=== PATIENT | female | born 1955 | race American Indian/Alaskan Native ===

== ENCOUNTER 2017-05-19 21:26 | Emergency (ER) | payer MEDICARE ==
[2017-05-20] LABS: Anion Gap 20 mmol/L; BUN/Creatinine Ratio 26.66; Blood Urea Nitrogen 16 mg/dL (7-17); Calcium 9.5 mg/dL (8.4-10.2); Carbon Dioxide 23 mmol/L (22-30); Glucose 89 mg/dL (65-100); Potassium 4.4 mmol/L (3.6-5.0); Sodium 139 mmol/L (137-145)
[2017-05-20 00:06] LABS: Basophils % (Auto) 0.6 % (0.0-1.8); Eosinophils % (Auto) 2.2 % (0.0-4.3); Hematocrit 30.2 % (30.3-42.9); Hemoglobin 9.7 gm/dl (10.1-14.3); Mean Corpuscular HGB Conc 32 % (30-34); Mean Corpuscular Volume 81 fl (79-97); Platelet Count 231 K/mm3 (140-440); Red Blood Count 3.75 M/mm3 (3.65-5.03); Red Cell Distribution Width 15.9 % (13.2-15.2); White Blood Count 8.3 K/mm3 (4.5-11.0)
[2017-05-20 00:07] LABS: Mean Corpuscular Hemoglobin 26 pg (28-32)
[2017-05-20 06:21] VITALS: BP 168/108
--- NOTE | 2017-05-20 06:22 | Emergency Department Report ---
ED Shortness of Breath HPI - General Chief Complaint: Dyspnea/Respdistress Stated Complaint: FALL/RT SIDE PAIN Time Seen by Provider: 05/20/17 05:58 Source: patient Mode of arrival: Ambulatory Limitations: No Limitations - History of Present Illness Initial Comments: 62-year-old female here with fall on Thursday. Complains of pain in the right knee. States she has pain when she ambulates. She noticed a significant swelling of the knee starting a couple days ago. She has notable bruising over the knee. She also complains of some mild shortness of breath. She's had that since Thursday as well. She has a mild cough. She is not coughing anything up. Denies fevers chills nausea vomiting chest pain. MD Complaint: shortness of breath, cough -: Gradual Radiation: other (none) Improves With: nothing Worsens With: nothing Associated Symptoms: denies other symptoms, cough - Related Data Previous Rx's Medication Instructions Recorded Last Taken Type Ibuprofen [Motrin] 600 mg PO Q8H PRN #15 tablet 05/20/17 Unknown Rx Allergies Allergy/AdvReac Type Severity Reaction Status Date / Time No Known Allergies Allergy Unverified 05/19/17 22:27 ED Review of Systems ROS: Stated complaint: FALL/RT SIDE PAIN Other details as noted in HPI Constitutional: denies: chills, fever Eyes: denies: eye pain, eye discharge, vision change ENT: denies: ear pain, throat pain Respiratory: shortness of breath. denies: cough, wheezing Cardiovascular: denies: chest pain, palpitations Endocrine: no symptoms reported Gastrointestinal: denies: abdominal pain, nausea, diarrhea Genitourinary: denies: urgency, dysuria, discharge Musculoskeletal: joint swelling. denies: back pain, arthralgia Skin: denies: rash, lesions Neurological: denies: headache, weakness, paresthesias Psychiatric: denies: anxiety, depression Hematological/Lymphatic: denies: easy bleeding, easy bruising ED Past Medical Hx - Past Medical History Previous Medical History?: Yes Hx Hypertension: Yes - Surgical History Past Surgical History?: Yes Additional Surgical History: fibroid sx 1992, hysterectomy 1992 - Social History Smoking Status: Never Smoker Substance Use Type: None - Medications Home Medications: Home Medications Medication Instructions Recorded Confirmed Last Taken Type Ibuprofen [Motrin] 600 mg PO Q8H PRN #15 tablet 05/20/17 Unknown Rx ED Physical Exam - General Limitations: No Limitations General appearance: alert, in no apparent distress - Head Head exam: Present: atraumatic, normocephalic - Eye Eye exam: Present: normal appearance, PERRL - ENT ENT exam: Present: mucous membranes moist - Neck Neck exam: Present: normal inspection, meningismus. Absent: lymphadenopathy - Respiratory Respiratory exam: Present: normal lung sounds bilaterally. Absent: respiratory distress, wheezes - Cardiovascular Cardiovascular Exam: Present: regular rate, normal rhythm. Absent: systolic murmur, diastolic murmur, rubs, gallop - GI/Abdominal GI/Abdominal exam: Present: soft, normal bowel sounds - Expanded Lower Extremity Exam Right Knee exam: Present: full ROM, tenderness, swelling, effusion. Absent: crepidus , dislocation, erythema Lower Leg exam: Present: swelling. Absent: tenderness, crepidus - Back Exam Back exam: Present: normal inspection - Neurological Exam Neurological exam: Present: alert, oriented X3 - Psychiatric Psychiatric exam: Present: normal affect, normal mood - Skin Skin exam: Present: warm, dry, intact, normal color. Absent: rash ED Course Vital Signs 05/19/17 05/20/17 05/20/17 22:18 02:24 02:30 Temperature 98 F Pulse Rate 95 H 84 Respiratory 18 10 L Rate Blood Pressure 186/110 187/116 Blood Pressure [Left] O2 Sat by Pulse 100 98 96 Oximetry 05/20/17 05/20/17 05/20/17 02:40 02:45 02:50 Temperature 98.4 F Pulse Rate 82 84 89 Respiratory 16 12 13 Rate Blood Pressure 187/116 174/107 Blood Pressure 187/116 [Left] O2 Sat by Pulse 96 97 94 Oximetry 05/20/17 05/20/17 05/20/17 03:00 03:10 03:20 Temperature Pulse Rate 79 81 85 Respiratory 12 15 17 Rate Blood Pressure 168/107 168/107 163/100 Blood Pressure [Left] O2 Sat by Pulse 95 96 95 Oximetry 05/20/17 05/20/17 05/20/17 03:30 03:40 03:50 Temperature Pulse Rate 79 75 74 Respiratory 12 15 13 Rate Blood Pressure 169/101 169/101 161/98 Blood Pressure [Left] O2 Sat by Pulse 95 95 95 Oximetry 05/20/17 04:00 Temperature Pulse Rate 71 Respiratory 15 Rate Blood Pressure 160/98 Blood Pressure [Left] O2 Sat by Pulse 94 Oximetry ED Medical Decision Making - Lab Data Result diagrams: 05/19/17 23:13 05/19/17 23:13 Laboratory Results - last 24 hr 05/19/17 05/19/17 23:13 23:13 WBC 8.3 RBC 3.75 Hgb 9.7 L Hct 30.2 L MCV 81 MCH 26 L MCHC 32 RDW 15.9 H Plt Count 231 Lymph % (Auto) 36.7 H [place] % (Auto) 10.9 H Eos % (Auto) 2.2 Baso % (Auto) 0.6 Lymph # 3.1 [place] # 0.9 H Eos # 0.2 Baso # 0.1 Seg Neutrophils % 49.6 Seg Neutrophils # 4.1 Sodium 139 Potassium 4.4 Chloride 100.0 Carbon Dioxide 23 Anion Gap 20 BUN 16 Creatinine 0.6 L Estimated GFR > 60 BUN/Creatinine Ratio 26.66 Glucose 89 Calcium 9.5 Troponin T < 0.010 - EKG Data -: EKG Interpreted by Me - EKG Data 05/20/17 06:23 Rate 97 Normal axis normal intervals and no ST-T wave changes - Radiology Data Radiology results: image reviewed interpreted by me: Chest x-ray clear knee x-ray chronic changes with no acute fracture - Medical Decision Making 62-year-old female here with complaint of right knee pain. She had a recent fall onto her right knee. She complains of some mild shortness of breath. Her workup is essentially unremarkable. Her labs are normal her chest x-ray is normal. Knee x-ray does not show any fracture. She has some obvious swelling and likely effusion of the knee. This is likely traumatic. Do not believe this needs to be drained. We'll place the patient on Motrin 600 mg for 3 days and discharge home. Critical care attestation.: If time is entered above; I have spent that time in minutes in the direct care of this critically ill patient, excluding procedure time. ED Disposition Clinical Impression: Knee contusion, Shortness of breath Disposition: DC- TO HOME OR SELFCARE Is pt being admited?: No Condition: Stable Instructions: Knee Pain (ED) Additional Instructions: Follow-up with your primary care physician Please take your ibuprofen every 8 hours for the next 3 days. Prescriptions: Ibuprofen [Motrin] 600 mg PO Q8H PRN #15 tablet PRN Reason: Pain Referrals: PRIMARY CARE, [Primary Care Provider] - 3-5 Days Time of Disposition: 06:26
[2017-05-20] MEDS ORDERED: MOTRIN PO ONE (06:27)
--- NOTE | 2017-05-20 07:37 | XRay Report ---
RIGHT KNEE, 3 views: History: Right knee pain and swelling. No comparison. Normal bone mineralization. Moderate osteoarthritic changes are identified. The lateral compartment appears most affected. No evidence for bony lesion, fracture or joint effusion. IMPRESSION: Osteoarthritis.
--- NOTE | 2017-05-20 07:37 | XRay Report ---
ROUTINE CHEST, TWO VIEWS: HISTORY: Shortness of breath. The trachea, heart, mediastinal contour, lung barrera and bony thorax are unremarkable. IMPRESSION: Unremarkable chest x-ray.
== END 2017-05-20 06:48 | disposition home or self-care (01) ==
LOC: ED 21:26
DX: S80.01XA Contusion of right knee, initial encounter (principal); R06.02 Shortness of breath; I10 Essential (primary) hypertension; X58.XXXA Exposure to other specified factors, initial encounter; Y93.89 Activity, other specified; Y92.89 Other specified places as the place of occurrence of the external cause; Y99.8 Other external cause status
CPT/HCPCS: 36415; 71020; 80048; 84484; 85025; 93005; 93010; 99284